=== PATIENT | female | born 1990 | race Caucasian/White ===

== ENCOUNTER 2018-05-25 08:30 | Emergency (ER) | END 2018-05-25 09:54 | disposition home or self-care (01) ==

== ENCOUNTER 2018-09-26 09:05 | Emergency (ER) | payer OTHER ==
[~2018-09-26] VITALS: Ht 152.4 cm; Wt 103.3 kg
[~2018-09-26 09:05] MED LIST: BEN50 PO; FAMO-96 PO; FERR27TA PO; IBUP-1542 PO; PNV11TAB PO; PRED20TA PO
[2018-09-26 09:15] VITALS: Ht 152.4 cm; Wt 103.3 kg
[2018-09-26] MEDS ORDERED: ACETAMINOPHEN 500 MG TAB PO STA (11:36)
[2018-09-26] MEDS ORDERED: MECLIZINE 12.5 MG TAB PO ONE (12:00)
[2018-09-26] MEDS ORDERED: DIPHENHYDRAMINE 2.5 MG/ML 5ML CUP PO ONE (12:00)
[2018-09-26] MEDS ORDERED: ACET500C5 PO (12:28)
[2018-09-26] MEDS ORDERED: CETI10TA19 PO (12:29)
[2018-09-26] MEDS ORDERED: MECL12.574 PO (12:31)
[2018-09-26 12:53] VITALS: BP 132/72; PULSE 86; RESP 18
--- NOTE | 2018-09-26 13:57 | ERD ---
ER Documentation Chief Complaint Chief Complaint dizziness HPI 28-year-old female coming in today with Chief Complaint: Dizziness History of Present Illness: She coming in today with complaint of dizziness for 2 weeks, nonprogressive, reports mainly present when patient moves his head quickly. She is unable to report of room spinning or if she feels like she is spinning. Associated symptoms include left ear pain, facial pressure, headache, runny nose. Denies use of medications at home for symptoms. Patient able to walk without difficulty, denies any type of confusion or neurological symptoms. Review of systems: All systems were reviewed and are negative except for what is indicated in the history of present illness. Past Medical History: Negative for hypertension, diabetes or other medical problems; patient reports she may be free dad eats but she is unsure Social History: Patient denies tobacco, alcohol, elicit drug use Medications: None Allergies: Naproxen Social Concerns: Denies ROS All systems reviewed and are negative except as per history of present illness. Medications Home Meds Active Scripts Meclizine Hcl* (Antivert*) 12.5 Mg Tab, 12.5 MG PO Q6H PRN for DIZZINESS, #20 TAB Prov:JEISON ELLIOTT [employer]OVERING PRINTER ASSISTANT 09/26/18 Cetirizine Hcl* (Cetirizine Hcl*) 10 Mg Tablet, 10 MG PO DAILY for allergies/head pressure/cough, #30 TAB Prov:JEISON ELLIOTT [employer] COVERING PRINTER ASSISTANT 09/26/18 Acetaminophen* (Tylophen*) 500 Mg Capsule, 2 CAP PO Q8H PRN for PAIN AND OR ELEVATED TEMP, #20 CAP Prov:JEISON ELLIOTT V [employer] COVERING PRINTER ASSISTANT 09/26/18 Ibuprofen* (Motrin*) 600 Mg Tab, 600 MG PO Q6H PRN for PAIN AND OR ELEVATED TEMP, #30 TAB Prov:FITO BUSTOS NP 05/25/18 Famotidine* (Pepcid*) 20 Mg Tablet, 20 MG PO BID for 5 Days, #15 TAB Prov:WILFREDO RODRIGUEZ PA-C 06/01/16 Diphenhydramine Hcl* (Benadryl*) 50 Mg Cap, 50 MG PO Q6H PRN for ITCHING/RASH, #15 CAP Prov:WILFREDO RODRIGUEZ PA-C 06/01/16 Prednisone* (Prednisone*) 20 Mg Tab, 60 MG PO DAILY for 4 Days, TAB Prov:WILFREDO RODRIGUEZ PA-C 06/01/16 Reported Medications Ferrous Sulfate (Iron) 1 Tab Tablet, 1 TAB PO DAILY 09/28/13 [id number] ( 19) 1 Each Tablet, 1 EACH PO DAILY 09/28/13 Allergies Allergies: Coded Allergies: naproxen (Verified Allergy, Mild, rash, 09/26/18) PMhx/Soc Medical and Surgical Hx: pt denies Surgical Hx History of Surgery: No Anesthesia Reaction: No Hx Neurological Disorder: No Hx Respiratory Disorders: No Hx Cardiac Disorders: No Hx Psychiatric Problems: No Hx Miscellaneous Medical Probl: Yes (Pre DM, Hyperlipidemia) Hx Alcohol Use: No Hx Substance Use: No Hx Tobacco Use: No Smoking Status: Never smoker FmHx Family History: diabetes; No coronary disease Physical Exam Vitals Vital Signs Date Temp Pulse Resp B/P (MAP) Pulse Ox O2 O2 Flow FiO2 Time Delivery Rate 09/26/18 98.3 86 18 132/72 100 Room Air 12:53 (92) 09/26/18 98.7 100 18 145/78 99 09:15 (100) Physical Exam Const: No acute distress Head: Atraumatic Eyes: Normal Conjunctiva ENT: Normal External Ears, Nose and Mouth. No erythema or bulging noted to tympanic membranes. Neck: Full range of motion. No meningismus. Resp: Clear to auscultation bilaterally Cardio: Regular rate and rhythm, no murmurs Abd: Soft, non tender, non distended. Normal bowel sounds. Obese, rounded belly. Skin: No petechiae or rashes Back: No midline or flank tenderness Ext: No cyanosis, or edema Neur: Awake and alert, neuro exam unremarkable. Psych: Normal Mood and Affect Results 24 hrs Current Medications Medications Dose Sig/Brett Start Time Status Last (Trade) Ordered Route PRN Stop Time Admin Dose Reason Admin Meclizine 25 mg ONCE ONCE 09/26/18 DC 09/26/18 HCl PO 12:00 11:59 (Antivert) 09/26/18 12:01 1,000 mg ONCE STAT 09/26/18 DC 09/26/18 Acetaminophen PO 11:36 11:59 (Tylenol 09/26/18 11:40 Tab) 12.5 mg ONCE ONCE 09/26/18 DC 09/26/18 Diphenhydrami PO 12:00 11:58 ne HCl 09/26/18 12:01 (Benadryl Liquid Cup) Procedures/MDM ED course includes a thorough examination and history. ED course includes medication; diphenhydramine for sinusitis/allergies, meclizine for dizziness, acetaminophen for headache/wrist pain. Low suspicion for life-threatening medical emergency or neurological emergency that requires hospitalization/surgery. Otherwise healthy patient presenting with constellation of symptoms likely representing uncomplicated otitis as characterized by history, physical exam findings. Patient reassessment: Dizziness no longer present, patient reports pain unchanged. No physical signs of pain, vital signs stable, no restlessness or grimacing noted. Requesting a work note. Disposition given. Plan of care discussed. Reiterated importance of return precautions for neurological deficits. Patient speaking in clear sentences, no acute distress. No respiratory distress, otherwise relatively well appearing and nontoxic. George henriquez educated on diagnoses, prescriptions, follow-up care, return precautions. Strict return precautions given for worsening condition; questions answered discharge. Disposition for discharge with followup in 2 days with PCP/clinic. Departure Diagnosis: Primary Impression: Maxillary sinusitis Chronicity: subacute Qualified Codes: J01.00 - Acute maxillary sinusitis, unspecified Additional Impressions: Carpal tunnel syndrome of right wrist Dizziness Condition: Stable Patient Instructions: Inner Ear Problems: Causes of Dizziness (Vertigo), Dizziness (Vertigo) and Balance Problems: Ensuring Your Safety, Carpal Tunnel, Dizziness, Unk Cause Referrals: COMMUNITY CLINICS YOU HAVE RECEIVED A MEDICAL SCREENING EXAM AND THE RESULTS INDICATE THAT YOU DO NOT HAVE A CONDITION THAT REQUIRES URGENT TREATMENT IN THE EMERGENCY DEPARTMENT. FURTHER EVALUATION AND TREATMENT OF YOUR CONDITION CAN WAIT UNTIL YOU ARE SEEN IN YOUR DOCTORS OFFICE WITHIN THE NEXT 1-2 DAYS. IT IS YOUR RESPONSIBILITY TO MAKE AN APPOINTMENT FOR FOLOW-UP CARE. IF YOU HAVE A PRIMARY DOCTOR --you should call your primary doctor and schedule an appointment IF YOU DO NOT HAVE A PRIMARY DOCTOR YOU CAN CALL OUR PHYSICIAN REFERRAL HOTLINE AT IF YOU CAN NOT AFFORD TO SEE A PHYSICIAN YOU CAN CHOSE FROM THE FOLLOWING [facility] [address] [facility]. [facility] [address] [facility] [address] [facility] [facility] [address] [facility] [facility] [facility] [address] [facility]. [facility]. [address] [facility]. [facility] YOU HAVE RECEIVED A MEDICAL SCREENING EXAM AND THE RESULTS INDICATE THAT YOU DO NOT HAVE A CONDITION THAT REQUIRES URGENT TREATMENT IN THE EMERGENCY DEPARTMENT. FURTHER EVALUATION AND TREATMENT OF YOUR CONDITION CAN WAIT UNTIL YOU ARE SEEN IN YOUR DOCTORS OFFICE WITHIN THE NEXT 1-2 DAYS. IT IS YOUR RESPONSIBILITY TO MAKE AN APPOINTMENT FOR FOLOW-UP CARE. IF YOU HAVE A PRIMARY DOCTOR --you should call your primary doctor and schedule and appointment IF YOU DO NOT HAVE A PRIMARY DOCTOR YOU CAN CALL OUR PHYSICIAN REFERRAL HOTLINE AT . IF YOU CAN NOT AFFORD TO SEE A PHYSICIAN YOU CAN CHOSE FROM THE FOLLOWING [facility] INSTITUTIONS: [facility] [address] [place] [address] [facility] [address] [place] [address] [facility] [address] [place] [address] [facility] Additional Instructions: Call your primary care doctor TOMORROW for an appointment during the next 2-3 days.See the doctor sooner or return here if your condition worsens before your appointment time. See your primary care doctor/clinic for further care for pain due to carpal tunnel. If you develop fever, nausea, vomiting, altered mental status return to ER. Take cetirizine every day for allergy-like symptoms and to prevent further sinusitis. Meclizine to be taken as needed for dizzy-like symptoms. Acetaminophen as needed for pain for head or wrist. See your primary care for the foot pain complaint due to this not being a life- threatening medical emergency. JEISON ELLIOTT NP Sep 26, 2018 13:57
== END 2018-09-26 12:54 | disposition home or self-care (01) ==
LOC: FTE 09:05
DX: J01.00 Acute maxillary sinusitis, unspecified (principal); G56.01 Carpal tunnel syndrome, right upper limb
CPT/HCPCS: Z7502; Z7610; 99282